=== PATIENT | male | born 1955 | race Caucasian/White ===

== ENCOUNTER 2020-03-03 12:32 | Outpatient (CLI) | payer BC, SELFPAY ==
--- NOTE | ~2020-03-03 | US_ITS ---
EXAMINATION: US scrotum doppler EXAM DATE: 03/03/2020 13:23 INDICATION: Spermatocele spermatocele . TECHNIQUE: Multiple grayscale and Doppler images of the testicles and scrotum were obtained bilateral ly. There is no prior study for comparison. FINDINGS: Right testicle measures 5.2 x 2.8 x 3.2 cm and is morphologically normal. Low resistance Doppler surinder w confirmed. There is a 9 mm epididymal head cyst. There is no hydrocele or varicocele. Left testicle measures 4.4 x 2.8 x 3.6 cm and is morphologically normal. Low resistance Doppler flow confirmed. There is a anechoic extratesticular cystic region measuring larger than the testicle. Th ere is no hydrocele or varicocele. IMPRESSION: Large simple cystic left extratesticular region, could be spermatocele or epididymal cyst . Reviewed, dictated and finalized at location A. PRESIDENT AND PORTFOLIO MANAGER IMPRESSION: Large simple cystic left extratesticular region, could be spermatoc maritza or epididymal cyst.
== END 2020-03-03 12:33 | disposition home or self-care (01) ==
PROVIDERS: PCP Internal Medicine; Visit Provider Urology
DX: N43.40 Spermatocele of epididymis, unspecified (principal); N44.2 Benign cyst of testis
CPT/HCPCS: 76870; 93976

== ENCOUNTER 2020-04-01 09:45 | Outpatient (CLI) | payer BC, SELFPAY | END 2020-04-01 09:46 | disposition home or self-care (01) | PROVIDERS: PCP Internal Medicine; Visit Provider Urology | DX: N43.40 Spermatocele of epididymis, unspecified (principal); Z01.818 Encounter for other preprocedural examination | CPT/HCPCS: 87086 ==

== ENCOUNTER 2020-04-03 00:46 | Outpatient (CLI) | payer BC, SELFPAY ==
[2020-04-03 18:47] LABS: SARS-CoV-2 RNA PCR Negative
== END 2020-04-03 00:47 | disposition home or self-care (01) ==
LOC: ANHCOVIDDT 00:46
PROVIDERS: PCP Internal Medicine; Visit Provider Urology
DX: Z01.812 Encounter for preprocedural laboratory examination (principal); Z20.822 Contact with and (suspected) exposure to COVID-19
CPT/HCPCS: C9803; U0003; U0005

== ENCOUNTER 2020-04-06 01:41 | Day surgery (SDC) | payer BC, SELFPAY ==
[2020-03-31 13:16] VITALS: BMI 28.8
--- NOTE | 2020-04-06 07:32 | WPDHPUPDATE1 ---
History and Physical Update Update Date/Time: 04/06/20 07:32 History and Physical has been reviewed, including an updated exam of the patient. There are NO changes in the patient's condition. Risks, benefits, and alternatives have been discussed and questions answered. Patient agrees to proceed with procedure. Proceed with left spermatocelectomy/hydrocelectomy
[2020-04-06 07:36] VITALS: BMI 28.3
[2020-04-06] MEDS: LACTATED RINGERS 1,000 ML 30 ML IV CONT (07:44)
[2020-04-06 07:46] VITALS: BP 160/104; PULSE 74; RESP 18; TEMP 36.4; O2SAT 98
[2020-04-06] MEDS: MIDAZOLAM HCL (*CRX) 2 MG/2 ML VIAL IV PUSH (08:44)
--- NOTE | 2020-04-06 08:46 | SUR.PREOP ---
0745; DR REESE NOTIFIED OF PT C/O BEING EXTREMELY ANXIOUS. BP HIGH. SEE VS GRAPHICS. DR REESE NOTIFIED. 0845; DR REESE ORDERED VERSED. PT REMAINS EXTREMELY ANXIOUS. COMFORTED
[2020-04-06] MEDS: ceFAZolin 2 GM/D5W 50 ML 2 GM/50 ML BAG IVPB (09:27)
--- NOTE | 2020-04-06 09:28 | SUR.PREOP ---
0900; PT AWAKE, RESTING QUIETLY.
--- NOTE | 2020-04-06 10:47 | P.OP_ITS ---
Procedure Note - Detailed Date of procedure: 04/06/20 Pre-op diagnosis: Spermatocele Post-op diagnosis: same (Right hydrocele, right spermatocele) Procedure performed: Right hydrocelectomy, right spermatocelectomy, right orchiopexy Description of procedure: Patient is taken the operative suite and correctly identified. Once anesthesia was obtained was placed in the supine position and prepped and draped usual sterile fashion. His correctly marked identified. A transverse incision was made in the left hemiscrotum. This was carried down through the tunical layers. The hydrocele spermatocele was then brought out into the operative field. It was clearly evident that he had 2 separate findings. We opened up the hydrocele sac and only drained about 25 cc of clear fluid. We excised the excess tissue was sent for analysis. He has an extremely large spermatocele/epididymal cyst which measured about 10 cm. We went ahead and dissected the spermatocele down to its insertion point at the head of the epididymis. We went ahead and placed hemostat on this area and then transected the spermatocele. We went ahead and ligated this area using 3 O chromic. Hemostasis was achieved using electrocautery. Quarter-inch [place] drain was then placed with separate stab incision and secured. We went ahead and did a 3 left orchiopexy to secured in 3 points using 3 0 at the mine. Tunica was closed using 3 0 chromic in running fashion. Skin was closed using 3 0 chromic in running fashion also. 1% lidocaine were used to anesthetize the skin. Patient tolerated procedure well without complication is taken recovery stable condition . Remove the Sherrell drain on if there is minimal drainage. Follow up in the office in a couple of weeks. Anesthesia: GLMA Surgeon: Quan Felder MD Drains: Yes Packing: No Pathology: yes Complications: No immediate complications Condition: stable Disposition: PACU
[2020-04-06 10:55] VITALS: BP 162/103; PULSE 90; RESP 10; TEMP 36.2; O2SAT 100
[2020-04-06 11:10] VITALS: BP 175/115; PULSE 85; RESP 16; O2SAT 100
--- NOTE | 2020-04-06 11:23 | SUR.PHASEI ---
[address] rios about his bp being high, doesn't take anything at home, so we are going to let it ride. told to follow up with primary
[2020-04-06 11:25] VITALS: BP 167/106; PULSE 82; RESP 12; O2SAT 98
[2020-04-06 11:40] VITALS: BP 174/108; PULSE 72; RESP 16
== END 2020-04-06 12:39 | disposition home or self-care (01) ==
PROVIDERS: PCP Internal Medicine; Visit Provider Urology
PROC: (CPT 54840; principal; 2020-04-06 09:30)
DX: N43.41 Spermatocele of epididymis, single (principal); N43.3 Hydrocele, unspecified
CPT/HCPCS: 55040; 54640; 88302; 88304; A9270; J0690; J1100; J2250; J2405; J2704; J3010; J7120

== ENCOUNTER 2020-08-23 09:11 | Outpatient (CLI) | payer OTHER, SELFPAY ==
--- NOTE | ~2020-08-23 | CT_ITS ---
EXAMINATION: CT lung screening DATE: 08/23/2020 09:36 INDICATION: History of tobacco dependence. Screening for lung cancer. TECHNIQUE: Computed tomography (CT) of the chest was performed without intravenous contrast. The dose -length product was 110.85 mGy-cm. Automated exposure control and iterative reconstruction technique were employed. COMPARISON: None FINDINGS: No significant pleural or pericardial effusion. There are calcified mediastinal and hilar l ymph nodes as well as calcifications in the spleen, consistent with chronic granulomatous disease. He art size normal. No thoracic lymphadenopathy. There are scattered calcified granulomas of the lung pa renchyma there is a noncalcified 4 mm right apical nodule, image 20. No acute osseous abnormality. Mo derate thoracic spondylosis. IMPRESSION: 1. Lung-RADS category 2: Benign appearance or behavior. Continue annual screening with noncontrast lo w-dose chest CT in 12 months. Reviewed, dictated and finalized at location B. IMPRESSION: 1. Lung-RADS category 2: Benign appearance or behavior. Continue annual screeni ng with noncontrast low-dose chest CT in 12 months.
== END 2020-08-23 09:12 | disposition home or self-care (01) ==
PROVIDERS: PCP Family Medicine; Visit Provider Family Medicine
DX: Z12.2 Encounter for screening for malignant neoplasm of respiratory organs (principal); Z87.891 Personal history of nicotine dependence
CPT/HCPCS: 71271

== ENCOUNTER 2021-01-18 01:19 | Day surgery (SDC) | payer OTHER, SELFPAY ==
[2021-01-11 16:12] VITALS: BMI 28.3
[2021-01-18 07:27] VITALS: BMI 27.1
[2021-01-18 07:32] VITALS: BP 168/91; PULSE 70; RESP 16; TEMP 36.4; O2SAT 100
[2021-01-18] MEDS: LACTATED RINGERS 1,000 ML 150 ML IV CONT (07:45)
--- NOTE | 2021-01-18 07:52 | WPDANESEPPF ---
Anes - Initial Pre Proc Eval Procedure: Operation Date: 01/18/21 08:30 Proposed Procedures p Esophagogastroduodenoscopy - Asael Zayas MD Date/Time: 01/18/21 07:52 Surgeon: Asael Zayas MD Pre Op Diagnosis: epigastric pain Patient Data Age: 65 Gender: M Height: 1.78 m Weight: 85.9 kg Last Vital Signs Temp 36.4 C L 01/18/21 07:32 Pulse 70 01/18/21 07:32 Resp 16 01/18/21 07:32 BP 168/91 H 01/18/21 07:32 Pulse Ox 100 01/18/21 07:32 Allergies Allergy/AdvReac Type Severity Reaction Status Date / Time No Known Allergies Allergy Verified 01/18/21 07:26 Home Medications Medication Instructions Recorded Confirmed Type amlodipine 5 mg tablet 5 mg PO DAILY #30 tablet 09/21/20 01/18/21 Rx lisinopril 10 1 tablet PO DAILY #30 tablet 09/21/20 01/18/21 Rx mg-hydrochlorothiazide 12.5 mg tablet omeprazole 20 mg PO DAILY 01/11/21 01/18/21 History vitamin B complex [B 1 tablet PO DAILY 01/11/21 01/18/21 History Complex-Vitamin B12] Patient hx anesthesia problems: none Family hx anesthesia problems: none Results Review: All pre-operative results and documents have been reviewed as part of the pre-operative evaluation. [facility] Past Medical History Medical History Anxiety Hydrocele of testis OAB (overactive bladder) Tobacco abuse Surgical History Surgical History History of hydrocelectomy History of total knee arthroplasty bilateral Hx of colonoscopy 2019 Family History Family History Other Diabetes mellitus Hypertension Social History Social History (Updated 12/28/20 @ 09:52 by Dayanna Acuna) Social History: Single Smoking packs per day: 0.5 Smoking cigarettes per day: 10.0 Years smoked: 40 Smoking pack-years: 20.00 Smoking status: Current every day smoker Tobacco type: cigarettes Second hand tobacco smoke exposure: Yes Additional smoking assessment comments: prior to 2020 smoked 1pk/day Alcohol intake: former Drinks per week: 6 Substance use: current Substance use type: marijuana Other substance usage details: occasional every couple weeks Last use: Pt smokes marijuana occasionally Living arrangements: with family Additional living arrangements comments: son lives with him Gender identity (if verbalized by the patient): Male Sexual Orientation (if Verbalized by the Patient): Straight or Heterosexual Spiritual care concerns: No Anes - Eval Final PreProcedure Day of Procedure 01/18/21 07:52 Patient weight: overweight Heart: regular rate and rhythm Lungs: clear to auscultation and normal air movement Airway: Mallampati scale class II Neurological: alert and oriented Last oral intake: >/= 8 hours ASA classification: II Emergent: no Anesthetic plan: proceed Anesthesia type and monitoring: general GIVS Results Review: All pre-operative results and documents have been reviewed as part of the pre-operative evaluation. Informed Consent: The patient's anesthetic plan and its attendant risks and benefits were discussed with the patient/family/POA. Questions were solicited and answers provided to the satisfaction of the patient/family/POA.
--- NOTE | 2021-01-18 08:23 | PM.HPGS ---
History of Present Illness History of Present Illness Consent: Risks, benefits, and alternatives have been discussed and questions answered. Patient agrees to proceed with procedure. Chief complaint: epigastric pain Narrative: Hermilo Meléndez is a 65 year old male with intermittent epigastric pain at bedtime, some relief with antacids and omeprazole. Last colonoscopy 2 years ago with polyps Review of Systems Constitutional: Constitutional: Denies headache(s) and Denies weakness Eyes: Eyes: Denies blurry vision ENT: Reports Normal hearing present, Denies headache(s) and Denies neck pain Cardiovascular: Cardiovascular: Denies chest pain and Denies dyspnea Respiratory: Respiratory: Denies dyspnea Gastrointestinal: Gastrointestinal: Reports no additional gastrointestinal complaints Genitourinary: Genitourinary: Denies dysuria Musculoskeletal: Musculoskeletal: Denies neck pain Integumentary/Breasts: Skin/Breast: Denies dry skin Neurologic: Reports Normal hearing present, Denies headache(s) and Denies weakness Psychiatric: Psychiatric: Denies anxiety Endocrine: Endocrine: Denies change in body appearance Hematologic/Lymphatic: Hematologic/Lymphatic: Denies easy bleeding Allergic/Immunologic: Allergic/Immunologic: Denies urticaria PMFSH Past Medical History Medical History Anxiety Hydrocele of testis OAB (overactive bladder) Tobacco abuse Surgical History Surgical History History of hydrocelectomy History of total knee arthroplasty bilateral Hx of colonoscopy 2019 Family History Family History Other Diabetes mellitus Hypertension Social History Social History (Updated 12/28/20 @ 09:52 by Dayanna Acuna) Social History: Single Smoking packs per day: 0.5 Smoking cigarettes per day: 10.0 Years smoked: 40 Smoking pack-years: 20.00 Smoking status: Current every day smoker Tobacco type: cigarettes Second hand tobacco smoke exposure: Yes Additional smoking assessment comments: prior to 2020 smoked 1pk/day Alcohol intake: former Drinks per week: 6 Substance use: current Substance use type: marijuana Other substance usage details: occasional every couple weeks Last use: Pt smokes marijuana occasionally Living arrangements: with family Additional living arrangements comments: son lives with him Gender identity (if verbalized by the patient): Male Sexual Orientation (if Verbalized by the Patient): Straight or Heterosexual Spiritual care concerns: No Meds Home Medications and Allergies Home Medications Medication Instructions Recorded Confirmed Type amlodipine 5 mg tablet 5 mg PO DAILY #30 tablet 09/21/20 01/18/21 Rx lisinopril 10 1 tablet PO DAILY #30 tablet 09/21/20 01/18/21 Rx mg-hydrochlorothiazide 12.5 mg tablet omeprazole 20 mg PO DAILY 01/11/21 01/18/21 History vitamin B complex [B 1 tablet PO DAILY 01/11/21 01/18/21 History Complex-Vitamin B12] Allergies Allergy/AdvReac Type Severity Reaction Status Date / Time No Known Allergies Allergy Verified 01/18/21 07:26 Vital Signs Vital Signs - 24 hr 01/18/21 07:32 Temperature 97.5 F L Pulse Rate 70 Respiratory Rate 16 Blood Pressure 168/91 H Pulse Oximetry 100 Exam Const: General: comfortable and no acute distress HENMT: General nose exam: Normal nares present Eyes: General: appearance normal, both eyes and all related structures Neck: Neck: no JVD Resp: Auscultation: clear to auscultation bilaterally Cardio: Rate: regular rate Rhythm: regular rhythm GI: Inspection: non-distended GI Palp: Yes Soft to palpation Skin: General skin exam: normal color Neuro: General: gait normal Speech: normal speech Extrem: General: normal to inspection Psych: Mental Status: mental status grossly
[2021-01-18] MEDS: BENZOCAINE (*SP) 60 ML SPRAY CAN (HURRICAINE) 1 SPRAY MUCOUS MEM (08:27)
[2021-01-18 08:37] VITALS: BP 115/65; PULSE 62; RESP 20; O2SAT 96
[2021-01-18 08:47] VITALS: BP 111/81; PULSE 74; RESP 20; O2SAT 95
[2021-01-18 08:57] VITALS: BP 113/75; PULSE 69; RESP 18; O2SAT 98
== END 2021-01-18 09:07 | disposition home or self-care (01) ==
PROVIDERS: PCP Family Medicine; Visit Provider Internal Medicine Gastroenterology
PROC: 0DJ08ZZ Inspection of Upper Intestinal Tract, Via Natural or Artificial Opening Endoscopic (ICD-10-PCS; CPT 43235; principal; 2021-01-18 08:30)
DX: R10.13 Epigastric pain (principal); K29.70 Gastritis, unspecified, without bleeding; Z86.010 Personal history of colon polyps; F41.9 Anxiety disorder, unspecified; N32.81 Overactive bladder; F17.210 Nicotine dependence, cigarettes, uncomplicated; F12.90 Cannabis use, unspecified, uncomplicated
CPT/HCPCS: 43239; 88305; J7120

== ENCOUNTER → 2021-02-14 13:37 | Outpatient (CLI) | payer OTHER, SELFPAY ==
--- NOTE | ~2021-02-14 | US_ITS ---
EXAMINATION: US soft tissue UE LT DATE: 02/14/2021 13:54 INDICATION: Ganglion cyst with palpable abnormality at the posterior left wrist. TECHNIQUE: Multiple grayscale and Doppler ultrasound images of the region of concern at the posterior aspect of the left wrist were obtained. COMPARISON: None FINDINGS/IMPRESSION: Vascular flow seen within a vessel extending into a 1.8 x 1.3 x 1.7 cm solid hypoechoic mass at the r egion of concern. Differential would include neoplasm either benign or malignant, nodular synovitis o r other inflammatory pseudotumor. Reviewed, dictated and finalized at location A. P PROJECT MANAGER
== END ==
PROVIDERS: PCP Family Medicine; Visit Provider Family Medicine
DX: M67.49 Ganglion, multiple sites (principal); M67.89 Other specified disorders of synovium and tendon, multiple sites; M71.39 Other bursal cyst, multiple sites
CPT/HCPCS: 76882

== ENCOUNTER 2021-03-29 13:22 | Outpatient (CLI) | payer OTHER, SELFPAY ==
[2021-03-29 13:54] LABS: Anion Gap 9 mmol/L (8-16); Blood Urea Nitrogen 18 mg/dL (9-20); Carbon Dioxide 30 mmol/L (22-30); Chloride 101 mmol/L (98-107); Estimated Glomerular Filt Rate > 60; Glucose 102 mg/dL (65-110); Potassium 3.8 mmol/L (3.4-5.0); Sodium 140 mmol/L (137-145)
== END 2021-03-29 13:23 | disposition home or self-care (01) ==
LOC: ANHSURGERY 13:26
PROVIDERS: Anesthesiology; PCP Family Medicine; Visit Provider Plastic Surgery
DX: Z01.812 Encounter for preprocedural laboratory examination (principal); Z51.81 Encounter for therapeutic drug level monitoring; Z79.899 Other long term (current) drug therapy
CPT/HCPCS: 36415; 80048

== ENCOUNTER 2021-03-31 00:46 | Day surgery (SDC) | payer OTHER, SELFPAY ==
[2021-03-29 12:28] VITALS: BMI 29.2
--- NOTE | 2021-03-29 12:44 | PC.NURSE ---
Report to the Outpatient Waiting Room, entrance under the green pavilion located off [facility], at time __6:00AM on date __03/31/21 . OR Time: ___7:30AM . - You and your visitor will be asked a series of questions to screen for COVID 19 for your protection. - A mask is required within the hospital. - Only one visitor is allowed at this time. Patient visitors will be guided where to wait when not with patient. Preoperative COVID Testing Requirements: No COVID Test needed if: (proof is required; if not received patient will have Rapid Test prior to entry) - Patient has received COVID Vaccine at least 14 days prior to procedure date or - Patient has positive COVID test result within last 90 days of surgery date. COVID Test needed if above criteria is not met If not COVID vaccinated a COVID test must be conducted within 72 hours of surgery and patient is asked to isolate self from time of testing until procedure. You will go to the [facility] for your COVID testing. The [facility] is located at the corner of [address] [facility]. You will only be called if COVID results are positive and your surgeon may reschedule your elective surgery date. Patients may have clear liquids (water, carbonated beverages, clear teas, apple juice) until 3 hours prior to surgery with a maximum of 20 ounces. - No food from midnight until time of surgery - Infants may have breast milk until 4 hours before surgery, infant formula 6 hours prior to surgery. - Children will be allowed to drink immediately following surgery. If applicable, please bring a bottle or sippy cup to assist with drinking. Juice, water, soda, and popsicles are readily available. For infants on formula, please bring formula the day of surgery. Pacifiers are allowed. Take the following medications with a SIP of water the morning of surgery: ____NONE Medications to discontinue per physician ____ALL VITAMINS/SUPPLEMENTS 3 DAYS PRE-OP Date to take last dose Please no make-up, nail singaporean, hairspray, perfume, deodorant, or body powder the day of surgery. No jewelry (including any body piercings) or valuables the day of surgery, leave them at home. Please take a shower or bath the night before, or the morning of, surgery with an antibacterial soap. Wear comfortable, loose fitting clothing. Children are encouraged to wear pajamas. - Jewelry must be removed prior to entering the operating room. Rings and piercings that are not removed may be cut off. - The hospital will not accept responsibility for valuables. - Please leave all valuables, including medications, at home the day of surgery. If you are going home after surgery, A LICENSED EARTH MOVING TECHNICIAN NEEDS TO DRIVE YOU HOME. - NO public transportation without another adult. - We recommend that an adult stay with you for 24 hours following discharge. - We also recommend that you do not drive, make important decision, drink alcoholic beverages, or take any drugs that were not prescribed by your health care provider for at least 24 hours after your discharge time. For Pediatric surgeries, we recommend two adults accompany the child home (only one inside the building at this time). Follow any additional instructions given to you from your surgeon. Telephone instructions given to ____PATIENT and asked if any additional questions and then verbalized understanding. Patient advised to call surgeon office or pre surgery nurse liaison [phone] if any additional questions.
--- NOTE | 2021-03-30 08:36 | P.PNAN_ITS ---
Anes - Initial Pre Proc Eval Procedure: Operation Date: 03/31/21 07:30 Proposed Procedures p Excision of Left Dorsal Wrist Subcutaneous Mass - Patrick Melo MD Date/Time: 03/30/21 08:36 Surgeon: Patrick Melo MD Pre Op Diagnosis: ganglion cyst Left wrist Patient Data Age: 65 Gender: M Height: 1.77 m Weight: 91 kg Allergies Allergy/AdvReac Type Severity Reaction Status Date / Time No Known Allergies Allergy Verified 03/31/21 06:11 Home Medications Medication Instructions Recorded Confirmed Type omeprazole 20 mg PO DAILY PRN 01/11/21 03/31/21 History vitamin B complex [B 1 tablet PO DAILY 01/11/21 03/31/21 History Complex-Vitamin B12] amlodipine 5 mg PO HS 03/29/21 03/31/21 History lisinopril-hydrochlorothiazide 1 tablet PO QAM 03/29/21 03/31/21 History Patient hx anesthesia problems: none Family hx anesthesia problems: none Results Review: All pre-operative results and documents have been reviewed as part of the pre-operative evaluation. [facility] Past Medical History Medical History Anxiety Benign essential HTN Hepatitis C treated in 1999 Hydrocele of testis OAB (overactive bladder) Tobacco abuse Surgical History Surgical History History of hydrocelectomy History of total knee arthroplasty bilateral Hx of colonoscopy 2018 Family History Family History Other Diabetes mellitus Hypertension Social History Social History Social History: Single Smoking packs per day: 1 Smoking cigarettes per day: 20.0 Years smoked: 45 Smoking pack-years: 45.00 Smoking status: Current every day smoker Tobacco type: cigarettes Second hand tobacco smoke exposure: Yes Additional smoking assessment comments: TAPERING DOWN TO 1/2 DAY Alcohol intake: former Alcohol use details: HEAVY DRINKER IN PAST, STOPPED 20 YRS AGO Substance use: never Substance use type: marijuana Other substance usage details: occasional every couple weeks Last use: Pt smokes marijuana occasionally Living arrangements: alone Additional living arrangements comments: son lives with him Gender identity (if verbalized by the patient): Male Sexual Orientation (if Verbalized by the Patient): Straight or Heterosexual Spiritual care concerns: No Anes - Eval Final PreProcedure Day of Procedure 03/30/21 08:36 Patient weight: overweight Heart: regular rate and rhythm Lungs: clear to auscultation and normal air movement Airway: Mallampati scale class II Neurological: alert and oriented Last oral intake: >/= 8 hours ASA classification: III Emergent: no Anesthetic plan: proceed Anesthesia type and monitoring: general GIVS and standard monitoring Results Review: All pre-operative results and documents have been reviewed as part of the pre-operative evaluation. Informed Consent: The patient's anesthetic plan and its attendant risks and benefits were discussed with the patient/family/POA. Questions were solicited and answers provided to the satisfaction of the patient/family/POA.
--- NOTE | 2021-03-30 19:15 | PM.HPGS ---
History of Present Illness History of Present Illness Consent: Risks, benefits, and alternatives have been discussed and questions answered. Patient agrees to proceed with procedure. Chief complaint: ganglion cyst Left wrist Narrative: Hermilo Meléndez is a 65 year old male, [id number], with concern for a 1/2 cm round dorsal mass over the left wrist consistent with ganglion cyst is occasionally tender has been imaged with ultrasound and found to be hypoechoic without vascular flow. He would like to have this removed. The procedure has been described to him, he is aware there can be infection scarring stiffness of the wrist a need for therapy or other possible complications he would like to proceed under mac anesthetic Review of Systems Review of Systems: All systems reviewed & are unremarkable except as noted in HPI and below Musculoskeletal: Musculoskeletal: Reports no additional musculoskeletal complaints PMFSH Past Medical History Medical History Anxiety Benign essential HTN Hepatitis C treated in 1999 Hydrocele of testis OAB (overactive bladder) Tobacco abuse Surgical History Surgical History History of hydrocelectomy History of total knee arthroplasty bilateral Hx of colonoscopy 2018 Family History Family History Other Diabetes mellitus Hypertension Social History Social History Social History: Single Smoking packs per day: 1 Smoking cigarettes per day: 20.0 Years smoked: 45 Smoking pack-years: 45.00 Smoking status: Current every day smoker Tobacco type: cigarettes Second hand tobacco smoke exposure: Yes Additional smoking assessment comments: TAPERING DOWN TO 1/2 DAY Alcohol intake: former Alcohol use details: HEAVY DRINKER IN PAST, STOPPED 20 YRS AGO Substance use: never Substance use type: marijuana Other substance usage details: occasional every couple weeks Last use: Pt smokes marijuana occasionally Additional living arrangements comments: son lives with him Gender identity (if verbalized by the patient): Male Sexual Orientation (if Verbalized by the Patient): Straight or Heterosexual Spiritual care concerns: No Meds Home Medications and Allergies Home Medications Medication Instructions Recorded Confirmed Type omeprazole 20 mg PO DAILY PRN 01/11/21 03/29/21 History vitamin B complex [B 1 tablet PO DAILY 01/11/21 03/29/21 History Complex-Vitamin B12] amlodipine 5 mg PO HS 03/29/21 03/29/21 History lisinopril-hydrochlorothiazide 1 tablet PO QAM 03/29/21 03/29/21 History Allergies Allergy/AdvReac Type Severity Reaction Status Date / Time No Known Allergies Allergy Verified 03/29/21 12:25 Exam Const: General: cooperative and healthy appearing HENMT: Head: normal to inspection Neck: Neck: normal visual inspection Resp: Effort & Inspection: normal respiratory effort Cardio: Rate: regular rate Rhythm: regular rhythm Skin: General skin exam: normal color and no rashes or lesions noted Neuro: General: patient oriented x3 Sensory Exam: normal sensation Extrem: Other: slightly tender dome-shaped subcutaneous mass of the left dorsal wrist Psych: Appearance: grossly normal Assessment and Plan Assessment and plan (1) Mass of left wrist: Code(s): R22.32 - Localized swelling, mass and lump, left upper limb Status: Acute Assessment and Plan: excision under sedation anesthetic.
[2021-03-31] MEDS: LACTATED RINGERS 1,000 ML 30 ML IV CONT ×2 (06:30→08:08)
[2021-03-31 06:33] VITALS: BP 162/105; PULSE 78; RESP 16; TEMP 36.6; O2SAT 98
--- NOTE | 2021-03-31 07:17 | WPDHPUPDATE1 ---
History and Physical Update Update Date/Time: 03/31/21 07:17 History and Physical has been reviewed, including an updated exam of the patient. There are NO changes in the patient's condition. Risks, benefits, and alternatives have been discussed and questions answered. Patient agrees to proceed with procedure.
[2021-03-31] MEDS: LIDO 1%/EPINEPHRINE 1:100,000 50 ML VIAL 30 ML INFILTRATE (07:40)
[2021-03-31 08:08] VITALS: BP 110/69; PULSE 65; RESP 14; O2SAT 96
[2021-03-31 08:30] VITALS: BP 126/75; PULSE 75; RESP 14
--- NOTE | 2021-03-31 08:31 | W.PM.PROC2 ---
Procedure Note - Detailed Date of Procedure 03/31/21 Pre-op Diagnosis ganglion cyst Left wrist Post-op Diagnosis same Procedure Performed Excision of 3 cm ganglion cyst left dorsal wrist Surgeon Patrick Melo MD Anesthesia MAC and local Findings 3 cm club shaped thick walled ganglion cyst without apparent open connection to the joint capsule Description of Procedure The left dorsal wrist site was marked on the patient in the holding area. He was taken to the operating room where he was placed supine on the operating table. A time-out was held and confirmed. The site was remarked for the incision transversely and locally infiltrated with 1% lidocaine with epinephrine. The tourniquet was inflated to 250 mmHg and was up for 20 minutes. The transverse incision was made the dissection was carried through subcutaneous tissue to the surface of the silvery ganglion cyst. The cyst had come up between the extensor tendons and was easily dissected. It was brought out intact a noting the long club shaped configuration of this. There was no apparent opening tracked to the joint capsule for the cyst was brought out intact. The wound was closed in 2 layers with intradermal and subcuticular of 4-0 Monocryl suture. A Xeroform gauze an Sorin wrap was applied the tourniquet was released and he was discharged instructions wound care and follow-up. Bleeding points had been cauterized prior to closure of the wound. He is discharged with a few hydrocodone 5/325 number 6. Estimated Blood Loss 2 Tourniquet Time 20 Drains No Packing No Pathology none sent Complications No immediate complications Condition stable Disposition same day
[2021-03-31 08:45] VITALS: BP 164/95; PULSE 76; RESP 16
== END 2021-03-31 09:09 | disposition home or self-care (01) ==
PROVIDERS: PCP Family Medicine; Visit Provider Plastic Surgery
PROC: (CPT 25111; principal; 2021-03-31 07:30)
DX: M67.432 Ganglion, left wrist (principal); I10 Essential (primary) hypertension; F41.9 Anxiety disorder, unspecified; Z86.19 Personal history of other infectious and parasitic diseases; F17.210 Nicotine dependence, cigarettes, uncomplicated; F12.90 Cannabis use, unspecified, uncomplicated
CPT/HCPCS: 25111; 36415; 80048; 88305; 88342; A9270; J2250; J3010; J7120

== ENCOUNTER 2021-04-12 09:37 | Outpatient (CLI) | payer OTHER, SELFPAY ==
--- NOTE | ~2021-04-12 | US_ITS ---
US abdomen limited INDICATION: Epigastric pain PROCEDURE: Realtime right upper abdominal ultrasound. COMPARISON: No prior studies for comparison. FINDINGS: The pancreas is normal without focal mass or pancreatic ductal dilation. Liver echotexture is normal without focal mass or intrahepatic biliary dilatation. There is normal directional flow i n the portal vein. The gallbladder is normal without stones, gallbladder wall thickening or pericholecystic fluid. Comm on bile duct measures 4 mm. No sonographic Dale's sign. IMPRESSION: 1: Normal limited abdominal ultrasound. Reviewed, dictated and finalized at location B. [facility]
== END 2021-04-12 09:38 | disposition home or self-care (01) ==
PROVIDERS: PCP Family Medicine; Visit Provider Family Medicine
DX: R10.13 Epigastric pain (principal)
CPT/HCPCS: 76705

== ENCOUNTER 2021-08-29 14:46 | Outpatient (CLI) | payer OTHER, SELFPAY ==
--- NOTE | ~2021-08-29 | CT_ITS ---
EXAMINATION: CT lung screening DATE: 08/29/2021 15:14 INDICATION: lung cancer screen TECHNIQUE: Computed tomography (CT) of the chest was performed without intravenous contrast. Addition al 3D reconstructions utilizing coronal maximum intensity projection (MIP) were performed. Automated exposure control and iterative reconstruction technique were employed. The dose-length product was 11 8.27 mGy-cm. COMPARISON: 08/23/2020 FINDINGS: Several scattered peripherally calcified pulmonary nodules along with calcified bilateral hilar and m ediastinal lymph nodes and a couple calcified splenic nodules, all consistent with old granulomatous disease. No other suspicious pulmonary nodules, pneumonia, pulmonary edema, pleural effusion or pneum othorax. Heart size is normal. No pericardial effusion. Thoracic aorta is normal in caliber. No patho logically enlarged thoracic lymphadenopathy. Severe thoracic spondylosis with bridging osteophytes at multiple levels consistent with diffuse idiopathic skeletal hyperostosis (DISH). IMPRESSION: 1. Lung-RADS category 1: Negative. Continue annual screening with noncontrast low-dose chest CT in 12 months. Reviewed, dictated and finalized at location A. IMPRESSION: 1. Lung-RADS category 1: Negative. Continue annual screening with noncontrast l ow-dose chest CT in 12 months.
== END 2021-08-29 14:47 | disposition home or self-care (01) ==
PROVIDERS: PCP Family Medicine; Visit Provider Nurse Practitioner Gerontology
DX: Z12.2 Encounter for screening for malignant neoplasm of respiratory organs (principal); F17.210 Nicotine dependence, cigarettes, uncomplicated
CPT/HCPCS: 71271

== ENCOUNTER 2023-07-17 00:09 | Day surgery (SDC) | payer MEDICARE, SELFPAY ==
[2023-07-12 12:24] VITALS: BMI 30.2
--- NOTE | 2023-07-17 11:14 | WPDANESEPPF ---
Anes - Initial Pre Proc Eval Procedure: Operation Date: 07/17/23 12:30 Proposed Procedures p Colonoscopy - Asael Zayas MD Date/Time: 07/17/23 11:14 Surgeon: Asael Zayas MD Pre Op Diagnosis: Pers. Hx. colon polyps, Anemia, unspecified, Patient Data Age: 67 Gender: M Height: 1.75 m Weight: 93 kg Allergies Allergy/AdvReac Type Severity Reaction Status Date / Time No Known Allergies Allergy Verified 07/12/23 12:22 Home Medications Medication Instructions Recorded Confirmed Type vitamin B complex (B 1 tablet PO DAILY 01/11/21 07/12/23 History Complex-Vitamin B12 tablet) lisinopril 10 mg tablet 10 mg PO DAILY #90 tabs 11/24/22 07/12/23 Rx amlodipine 10 mg tablet See Rx Instructions .Route 02/18/23 07/12/23 Rx .COMPLEX #100 tabs buspirone 5 mg tablet 5 mg PO BID #90 tabs 06/01/23 07/12/23 Rx Patient hx anesthesia problems: none Family hx anesthesia problems: none Results Review: All pre-operative results and documents have been reviewed as part of the pre-operative evaluation. [facility] Past Medical History Medical History Anxiety Benign essential HTN Constipation Cyst in hand Elevated liver enzymes Epigastric abdominal pain Hepatitis C treated in 1999 Hydrocele of testis Hyperglycemia Irregular cardiac rhythm Lower urinary tract symptoms (LUTS) Mass of left wrist OAB (overactive bladder) Prostate cancer screening Stress at home Tobacco abuse Surgical History Surgical History History of hydrocelectomy History of total knee arthroplasty bilateral Hx of colonoscopy 2019 Family History Family History Other Diabetes mellitus Hypertension Social History Social History Social History: Single Smoking packs per day: 0.5 Smoking cigarettes per day: 10.0 Years smoked: 45 Smoking pack-years: 22.50 Smoking status: Current some day smoker Tobacco type: cigarettes Second hand tobacco smoke exposure: Yes Alcohol intake: former Alcohol use details: HEAVY DRINKER IN PAST, STOPPED 20 YRS AGO Substance use: current Substance use type: marijuana Other substance usage details: Occasionally Last use: 07/09/23 Lack of Transportation: No Lack of Food: Never True Current Housing: I Have Housing Concerned About Future Housing: No Difficulty Paying Gas/Electric Bills: No Difficulty Paying for Meds: No Currently Unemployed: YES Education: Decline to Answer Difficulty w/ Childcare or Family Care: No Living arrangements: alone Additional living arrangements comments: son lives with him Occupation/Education: retired Gender identity (if verbalized by the patient): Male Sexual Orientation (if Verbalized by the Patient): Straight or Heterosexual Spiritual care concerns: No Anes - Eval Final PreProcedure Day of Procedure 07/17/23 11:14 Patient weight: obese Heart: regular rate and rhythm Lungs: clear to auscultation Airway: Mallampati scale class II Neurological: alert and oriented ASA classification: III Emergent: no Anesthetic plan: proceed Anesthesia type and monitoring: general GIVS and standard monitoring Results Review: All pre-operative results and documents have been reviewed as part of the pre-operative evaluation. Informed Consent: The patient's anesthetic plan and its attendant risks and benefits were discussed with the patient/family/POA. Questions were solicited and answers provided to the satisfaction of the patient/family/POA.
[2023-07-17 11:20] VITALS: BP 148/81; PULSE 86; RESP 18; TEMP 36.2; O2SAT 100
[2023-07-17] MEDS: LACTATED RINGERS 1,000 ML 150 ML IV CONT (11:30)
--- NOTE | 2023-07-17 12:23 | PM.HPGS ---
History of Present Illness History of Present Illness Consent: Risks, benefits, and alternatives have been discussed and questions answered. Patient agrees to proceed with procedure. Chief complaint: Pers. Hx. colon polyps Narrative: Hermilo Meléndez is a 67 year old male with colon polyp 5 years ago Review of Systems Review of Systems: All systems reviewed & are unremarkable except as noted in HPI and below PMFSH Past Medical History Medical History Anxiety Benign essential HTN Constipation Cyst in hand Elevated liver enzymes Epigastric abdominal pain Hepatitis C treated in 1999 Hydrocele of testis Hyperglycemia Irregular cardiac rhythm Lower urinary tract symptoms (LUTS) Mass of left wrist OAB (overactive bladder) Prostate cancer screening Stress at home Tobacco abuse Surgical History Surgical History History of hydrocelectomy History of total knee arthroplasty bilateral Hx of colonoscopy 2019 Family History Family History Other Diabetes mellitus Hypertension Social History Social History Social History: Single Smoking packs per day: 0.5 Smoking cigarettes per day: 10.0 Years smoked: 45 Smoking pack-years: 22.50 Smoking status: Current some day smoker Tobacco type: cigarettes Second hand tobacco smoke exposure: Yes Alcohol intake: former Alcohol use details: HEAVY DRINKER IN PAST, STOPPED 20 YRS AGO Substance use: current Substance use type: marijuana Other substance usage details: Occasionally Last use: 07/09/23 Lack of Transportation: No Lack of Food: Never True Current Housing: I Have Housing Concerned About Future Housing: No Difficulty Paying Gas/Electric Bills: No Difficulty Paying for Meds: No Currently Unemployed: YES Education: Decline to Answer Difficulty w/ Childcare or Family Care: No Living arrangements: alone Additional living arrangements comments: son lives with him Occupation/Education: retired Gender identity (if verbalized by the patient): Male Sexual Orientation (if Verbalized by the Patient): Straight or Heterosexual Spiritual care concerns: No Meds Home Medications and Allergies Home Medications Medication Instructions Recorded Confirmed Type vitamin B complex (B 1 tablet PO DAILY 01/11/21 07/12/23 History Complex-Vitamin B12 tablet) lisinopril 10 mg tablet 10 mg PO DAILY #90 tabs 11/24/22 07/12/23 Rx amlodipine 10 mg tablet See Rx Instructions .Route 02/18/23 07/12/23 Rx .COMPLEX #100 tabs buspirone 5 mg tablet 5 mg PO BID #90 tabs 06/01/23 07/12/23 Rx Allergies Allergy/AdvReac Type Severity Reaction Status Date / Time No Known Allergies Allergy Verified 07/17/23 11:16 Vital Signs Vital Signs - 24 hr 07/17/23 11:20 Temperature 97.1 F L Pulse Rate 86 Respiratory Rate 18 Blood Pressure 148/81 H Pulse Oximetry 100 Oxygen Delivery Room Air Exam Const: General: comfortable and no acute distress HENMT: Face/Nose/Sinus: Normal nares present Eyes: General: appearance normal, both eyes and all related structures Neck: Neck: no JVD Resp: Auscultation: clear to auscultation bilaterally Cardio: Rate: regular rate Rhythm: regular rhythm GI: Inspection: non-distended GI Palp: Yes Soft to palpation Skin: General skin exam: normal color Neuro: General: gait normal Speech: normal speech Extrem: General: normal to inspection Psych: Mental Status: mental status grossly normal Assessment and Plan Assessment and plan (1) History of colon polyps: Code(s): Z86.010 - Personal history of colonic polyps Status: Acute Assessment and Plan: colonoscopy
[2023-07-17 12:37] VITALS: BP 132/74; PULSE 67; RESP 18; O2SAT 95
[2023-07-17 12:47] VITALS: BP 123/72; PULSE 66; RESP 18; O2SAT 95
[2023-07-17 12:57] VITALS: BP 140/93; PULSE 67; RESP 20; O2SAT 98
== END 2023-07-17 13:10 | disposition home or self-care (01) ==
PROVIDERS: PCP Family Medicine; Referring Provider Physician Assistant; Visit Provider Internal Medicine Gastroenterology
PROC: 0DJD8ZZ Inspection of Lower Intestinal Tract, Via Natural or Artificial Opening Endoscopic (ICD-10-PCS; CPT 45378; principal; 2023-07-17 12:30)
DX: Z12.11 Encounter for screening for malignant neoplasm of colon (principal); D12.3 Benign neoplasm of transverse colon; D12.4 Benign neoplasm of descending colon; D12.5 Benign neoplasm of sigmoid colon; K64.8 Other hemorrhoids; I10 Essential (primary) hypertension; F41.9 Anxiety disorder, unspecified; Z86.19 Personal history of other infectious and parasitic diseases; F17.210 Nicotine dependence, cigarettes, uncomplicated; F12.90 Cannabis use, unspecified, uncomplicated; E66.9 Obesity, unspecified; Z68.28 Body mass index [BMI] 28.0-28.9, adult
CPT/HCPCS: 45385; 45380; 88305; J2704; J7120

== ENCOUNTER 2023-12-11 10:44 | Outpatient (CLI) | payer MEDICARE, SELFPAY ==
--- NOTE | ~2023-12-11 | CT_ITS ---
CT Scan of the Chest without Contrast: Clinical Indication: Lung cancer screening, nicotine dependence Technique: Contiguous sections were acquired throughout the chest without intravenous contrast. Dose reduction technique was used on this scan by utilizing automated exposure control and iterative recon struction technique. The dose-length product (DLP) was 171.47 mGy-cm. COMPARISON: 08/29/2021 Findings: There is no evidence of any significant mediastinal, hilar or axillary lymphadenopathy. Small calcifi ed mediastinal and hilar lymph nodes are present. There are mild coronary artery calcifications. There is no evidence of pleural or pericardial effusion. Stable 3 mm right upper lobe pulmonary nodule (axial and 34). Stable calcified granulomas bilaterally . Images through the upper abdomen reveal no abnormalities. Stable degenerative change and DISH of the thoracic spine. Impression: Lung RADS 2: Benign appearance. 12 month follow-up screening CT advised. Reviewed, dictated and finalized at [facility]. Impression: Lung RADS 2: Benign appearance. 12 month follow-up screening CT advised.
== END 2023-12-11 10:45 | disposition home or self-care (01) ==
PROVIDERS: PCP Family Medicine; Visit Provider Family Medicine
DX: Z12.2 Encounter for screening for malignant neoplasm of respiratory organs (principal); Z87.891 Personal history of nicotine dependence
CPT/HCPCS: 71271

== ENCOUNTER 2024-08-14 07:56 | Outpatient (CLI) | payer MEDICARE, SELFPAY ==
--- NOTE | ~2024-08-14 | US_ITS ---
EXAMINATION: US aorta [facility] DATE: 08/14/2024 08:51 INDICATION: Abdominal aortic aneurysm screening TECHNIQUE: Grayscale, color Doppler, and pulsed Doppler images of the aorta and common iliac arteries were obtained. COMPARISON: None. FINDINGS: The proximal aorta measures 3.3 cm. The mid aorta measures 2.7 cm. The distal aorta measures 2.3 cm. Normal triphasic arterial waveforms with brisk systolic upstrokes in the aorta. The right common rachael c artery measures 1.3 cm. The left common iliac artery measures 1.2 cm. IMPRESSION: 1. Normal caliber abdominal aorta. Reviewed, dictated and finalized at location A.
--- OUTSIDE RECORDS SUMMARY | 2024-08-14 08:03 | XMS_ITS | Continuity of Care Document ---
Author Organization [facility] [place], [place] Address [address] [place] [address] Phone Care Team Providers Care Anvil Worker Name Role Phone Manrique OD, Marv Unavailable Unavailable Procedures Procedure Date Refraction Office/outpatient Visit, Est Progressive Lens, Plastic Frames Deluxe Tint Photochromatic, Plastic Anti-reflective Coating Tax - Medical Eye Exam & Treatment Advance Directives Directive Yes / No Effective Date File Name No Information Encounters Encounter Description Practice Location Reason(s) For Visit Diagnoses Date Provider Providers Copied on Encounter [facility], [address] [place] [address] [address], [place], [place], [id number], [place] tel:[phone] SEC [facility] No Information 7 0 Manrique OD Marv. [address] , [address], [place], [place], [facility], [place]. tel:[phone] Office/outpat ient Visit, Est [facility], [address] [place] [address] [address], [place], [place], [id number], [place] tel:[phone] [facility] No Information 0 Krishnasamy Roni. [address], [place], [place], [facility], [place]. tel:[phone] [facility], [address] [place] [address] [address], [place], [place], [id number], [place] tel:[phone] SEC [facility] No Information 8 [facility]. [address], [address], [place], [place], [id number], [place]. tel:[phone] Referring Provider: Julio Cesar Hardin, [address], [place], [address] . tel:[phone] sulting Provider: Paulino Urrutia, [address], [place], [address]. tel:[phone] [facility], [address], [place], [place], [id number], [place] tel:[phone] SEC [facility] No Information 8 Juan Jose Harrell. [address] [facility] [address] [place] [place], [id number], [place]. tel:[phone] Family History Family Member Type Diagnosis Age At Onset No Information Payers Payer name Insurance type Covered constitution party ID Authoriza tion(s) No Information Social History Type Description Quantity Date Captured Comments Sex Male Smoking Status No Information Chief Complaint And Reason For Visit No Information Reason For Referral Reason For Referral No Information History Of Present Illness Encounter Date Complaint History Of Prese nt Illness No Information Functional Status Date Functional Assessmen t No Information Instructions Date Instruction Additional Infor mation No Information Assessments Type Assessment Date No Information Patient Care Teams Name Effective Dates (start - stop) Status Members No Information
--- OUTSIDE RECORDS SUMMARY | 2024-08-14 08:04 | XMS_ITS | Clinical Summary ---
Author Organization [facility] Address [address] [place] [address] Care Team Providers Care Porter Sample Case Name Role Phone Otilia Casillas MD Primary Care Provider + Source Comments [facility],non-owned Affiliates and Associated Physician Practices is amultiple site organization consisting of ambulatory clinics and hospital sitesin [place], [place], [place] and [place]. This disclosure is being madepursuant to the Care Everywhere program and may not contain all information available regarding this patient. Last updated 17.[facility] Allergies No known active allergies Immunizations Immunization Administration Dates Next Due INFLUENZA VACCINE, QUADR. 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 Gender Identity Male 01/28/2020 12:45 PM WAREHOUSE SHIPPER Sexual Orientation Not on file Plan of Treatment Health Maintenance Due Date Last Done Comments COLOGUARD (AGES 45-75) - COL ON CA SCREENING 1955 COLON MONITORING 1955 COLONOSCOPY - COLON CA SCREENING 1955 CT COLONOGRAPHY - COLON CA SCREENING 1955 Colorectal Cancer Screening 1955 FIT - COLON CA SCREENING 1955 FLEX SIG - COLON CA SCREENING 1955 LIPID TESTING 1955 MEDICARE AWV 12 MONTHS 1955 HEPATITIS C SCREENING 08/12/1973 DTAP/TDAP/TD VACCINES (1 - Tdap) 08/16/1974 PNEUMOCOCCAL VACCINE 50+ (1 of 1 - PCV) 08/16/2005 ZOSTER VACCINE (1 of 2) 08/16/2005 COVID-19 VACCINE (1 - 2023-2 5 season) 2023 DEPRESSION SCREENING 03/19/2024 INFLUENZA VACCINE (Season Ended) 2024 01/28/20 20 Respiratory Syncytial Virus (RSV) Vaccine Pt: or over 60 yrs (1 - 1-dose 75+ series) 08/16/2030 HEPATITIS B VACCINE Aged Out No longe r eligible based on patient's age to complete this topic HIB VACCINE Aged Out No longer eligi ble based on patient's age to complete this topic HPV VACCINE Aged Out No longer eligi ble based on patient's age to complete this topic MENINGOCOCCAL (Group B) VACC INE SHARED DECISION-MAKING Aged Out No longer eligibl e based on patient's age to complete this topic MENINGOCOCCAL GROUPS A/C/Y/W VACCINE Aged Out No longer eligible b ased on patient's age to complete this topic Insurance [facility] [employer] MEDICARE * Guarantor: HERMILO LEAL Account Type Relation to Patient Date of Phone Billing Address Personal/Family [address] [place] [address] [employer] SELF PAY NO INSURANCE Member Subscriber Plan / Payer (Ef fective for All Dates) Name:Hermilo Leal Member ID:Not on file Relation to Subscriber:Not on file Name:HERMILO LEAL Subscriber ID:Not on file Address: [address] [place] [address] Payer ID:Not on file Group ID:Not on file Type:Self Pay Address: [place], [place] * Guarantor: HERMILO LEAL Account Type Relation to Patient Date of Phone Billing Address Personal/Family [address] [place] [address] [employer] SELF PAY NO INSURANCE Member Subscriber Plan / Payer (Ef fective for All Dates) Name:Hermilo Leal Member ID:Not on file Relation to Subscriber:Not on file Name:HERMILO LEAL Subscriber ID:Not on file Address: [address] [place] [phone] Payer ID:Not on file Group ID:Not on file Type:Self Pay Address: [place], [place] * Guarantor: VICENTEHERMILO BRYAN Account Type Relation to Patient Date of Phone Billing Address Personal/Family [address] [place] [phone] [employer] [facility] Care Address: [address] [phone] SELF PAY NO INSURANCE Member Subscriber Plan / Payer (Ef fective for All Dates) Name:Hermilo Leal Member ID:Not on file Relation to Subscriber:Not on file Name:HERMILO LEAL Subscriber ID:Not on file Address: [address] [place] [phone] Payer ID:Not on file Group ID:Not on file Type:Self Pay Address: [place], [place] Care Teams Porter Sample Case Relationship Specialty Start Date End Date Otilia Casillas MD [address] [place] [address] PCP - General 01/19/21
== END 2024-08-14 07:57 | disposition home or self-care (01) ==
PROVIDERS: PCP Family Medicine; Visit Provider Family Medicine
DX: Z13.6 Encounter for screening for cardiovascular disorders (principal)
CPT/HCPCS: 76706

== ENCOUNTER 2024-09-29 14:19 | Outpatient (CLI) | payer MEDICARE, SELFPAY ==
--- NOTE | ~2024-09-29 | MR_ITS ---
MRI of the lumbar spine Clinical History: Spinal stenosis Technique: Axial T2-weighted images, and sagittal T1-weighted, T2-weighted, and T2 fat-sat images wer e acquired. Findings: No fracture identified. There is minimal grade 1 retrolisthesis of L2 over L3, and of L3 ov er L4. No suspicious bone marrow signal abnormality seen. At L1-L2, there is moderate degenerative disc narrowing and moderate facet arthropathy. No central ca nal stenosis. There is moderate to advanced left neural foraminal narrowing. There is minimal right n eural foraminal narrowing. At L2-L3, there is moderate degenerative distended. There is diffuse disc bulge with moderate facet a rthropathy. There is left lateral recess stenosis. There is severe left neural foraminal narrowing an d mild right neural foraminal narrowing. No randy central canal stenosis. At L3-L4, there is moderate to advanced degenerative distended. Disc bulge and advanced facet arthrop athy are present. There is mild to moderate central canal stenosis. There is severe left neural loki inal narrowing and mild right neural foraminal narrowing. At L4-L5, there is severe degenerative disc narrowing. Diffuse disc bulge and severe facet arthropath y result in severe spinal canal stenosis/thecal sac compression. There is severe bilateral neural for aminal narrowing. At L5-S1, there is diffuse disc bulge with severe facet arthropathy. There is mild central canal sten osis. There is severe right neural foraminal narrowing, and moderate left neural foraminal narrowing. Paravertebral soft tissues are unremarkable. Impression: Advanced degenerative spondylosis, with multilevel neural foraminal narrowing. There is severe multif actorial spinal canal stenosis/thecal sac compression L4-L5. Please see details above. Reviewed, dictated and finalized at [facility]. Impression: Advanced degenerative spondylosis, with multilevel neural foraminal narrowing. There is severe multifactorial spinal canal stenosis/thecal sac compression L4- L5. Please see details above.
--- OUTSIDE RECORDS SUMMARY | 2024-09-29 14:27 | XMS_ITS | Clinical Summary ---
Author Organization [facility] Address [address] [place] [place] [address] Care Team Providers Care Keyseater Operator Name Role Phone Otilia Casillas MD Primary Care Provider + Source Comments [facility],non-owned Affiliates and Associated Physician Practices is amultiple site organization consisting of ambulatory clinics and hospital sitesin [place], [place], [place] and [place]. This disclosure is being madepursuant to the Care Everywhere program and may not contain all information available regarding this patient. Last updated 17.[facility] Allergies No known active allergies Immunizations Immunization Administration Dates Next Due INFLUENZA VACCINE, QUADR. 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 Gender Identity Male 01/28/2020 12:45 PM GENERAL UTILITY MAINTENANCE REPAIRER Sexual Orientation Not on file Plan of [...] season) 2023 DEPRESSION SCREENING 03/19/2024 INFLUENZA VACCINE (#1) 2024 01/28/2020 Respiratory Syncytial Virus (RSV) Vaccine Pt: or [...] patient's age to complete this topic Insurance [facility] ESSENCE MEDICARE * Guarantor: HERMILO LEAL Account Type Relation to Patient Date of Phone Billing Address Personal/Family [address] [place] [address] [employer] SELF PAY NO INSURANCE Member Subscriber Plan / Payer (Ef fective for All Dates) Name:Hermilo Leal Member ID:Not on file Relation to Subscriber:Not on file Name:HERMILO LEAL Subscriber ID:Not on file Address: [address] [place] [address] Payer ID:Not on file Group ID:Not on file Type:Self Pay Address: [place], [place] * Guarantor: HERMILO LEAL Account Type Relation to Patient Date of Phone Billing Address Personal/Family [address] [place] [address] [employer] SELF PAY NO INSURANCE Member Subscriber Plan / Payer (Ef fective for All Dates) Name:Hermilo Leal Member ID:Not on file Relation to Subscriber:Not on file Name:HERMILO LEAL Subscriber ID:Not on file Address: [address] [place] [phone] Payer ID:Not on file Group ID:Not on file Type:Self Pay Address: [place], [place] * Guarantor: VICENTEHERMILO BRYAN Account Type Relation to Patient Date of Phone Billing Address Personal/Family [address] [place] [phone] [employer] [facility] Address: [address] [phone] SELF PAY NO INSURANCE Member Subscriber Plan / Payer (Ef fective for All Dates) Name:Hermilo Leal Member ID:Not on file Relation to Subscriber:Not on file Name:HERMILO LEAL Subscriber ID:Not on file Address: [address] [place] [phone] Payer ID:Not on file Group ID:Not on file Type:Self Pay Address: [place], [place] Care Teams Keyseater Operator Relationship Specialty Start Date End Date Otilia Casillas MD [address] [place] [address] PCP - General 01/19/21
--- OUTSIDE RECORDS SUMMARY | 2024-09-29 14:27 | XMS_ITS | Continuity of Care Document ---
Author Organization [facility] Address [address] [place] [address] Phone Care Team Providers Care Poll Watcher Name Role Phone Manrique OD, Marv Unavailable Unavailable Procedures Procedure Date Refraction Office/outpatient Visit, Est Progressive Lens, Plastic Frames Deluxe Tint Photochromatic, Plastic Anti-reflective Coating Tax - Medical Eye Exam & Treatment Advance Directives Directive Yes / No Effective Date File Name No Information Encounters Encounter Description Practice Location Reason(s) For Visit Diagnoses Date Provider Providers Copied on Encounter Merged with [facility], [address] [place] [address] [address], [place], [place], [id number], [place] tel:[phone] [facility] [place] No Information 7 0 Manrique OD Marv. [address] [facility] , [address], [place], [place], [facility], [place]. tel:[phone] Office/outpat ient Visit, Est Merged with [facility], [address] [place] [address] [address], [place], [place], [id number], [place] tel:[phone] [facility] [place] No Information 0 Krishnasamy Roni. [address] [facility] [address], [place], [place], [facility], [place]. tel:[phone] Merged with [facility], [address] [place] [address] [address], [place], [place], [id number], [place] tel:[phone] [facility] No Information 8 [employer] [facility] [employer]. [address], [address], [place], [place], [id number], [place]. tel:[phone] Referring Provider: Julio Cesar Hardin, [address] [facility] [address], [place], [address] . tel:[phone] sulting Provider: Paulino Urrutia, [address] [facility], [place], [address]. tel:[phone] [facility], [address], [place], [place], [id number], [place] tel:[phone] [facility] [place] No Information 8 Juan Jose Harrell. [address] [facility], [facility] [employer], [place], [id number], [place]. tel:[phone] Family History Family Member Type Diagnosis Age [...]
== END 2024-09-29 14:20 | disposition home or self-care (01) ==
PROVIDERS: PCP Family Medicine; Visit Provider Orthopaedic Surgery
DX: M47.816 Spondylosis without myelopathy or radiculopathy, lumbar region (principal); M48.061 Spinal stenosis, lumbar region without neurogenic claudication
CPT/HCPCS: 72148